=== PATIENT | male | born 1940 | race Caucasian/White ===

== ENCOUNTER 2016-11-13 06:42 | Day surgery (SDC) | payer OTHER ==
--- NOTE | ~2016-11-13 | EGD ---
EGD REPORT [facility] [address] [address] NAME: KARRI MORENO JR : 44 STATUS : REG [facility]#: [id number] AGE: 76 ADM/REG DATE : 11/13/16 MR#: [id number] REPORT SERV DATE: 11/13/16 DICTATED BY: JAYANT GARCIA DATE: 11/13/16 REPORT STATUS : Draft TRANSCRIBED BY: [facility] DATE: 11/13/16 Endoscopy Center Patient Name: Karri Moreno Date of : 1940 Attending MD: JAYANT GARCIA MD Procedure Date No Time: 11/13/2016 Procedure: Colonoscopy Indications: Periumbilical abdominal pain, Rectal bleeding Referring MD: PALOMO HUNTER Medicines: Monitored Anesthesia Care Complications: No immediate complications. Procedure: Pre-Anesthesia Assessment: - ASA Grade Assessment: III - A patient with severe systemic disease. After I obtained informed consent, the scope was passed under direct vision. Throughout the procedure, the patient's blood pressure, pulse, and oxygen saturations were monitored continuously. The CF [id number] was introduced through the anus and advanced to the cecum, identified by appendiceal orifice and ileocecal valve. The colonoscopy was performed with moderate difficulty due to a partially obstructing mass, significant looping and a tortuous colon. Successful completion of the procedure was aided by applying abdominal pressure. The patient tolerated the procedure well. The quality of the bowel preparation was adequate. Findings: Digital rectal exam revealed a firm rectal mass palpated 4 to 5 cm from the anal verge. A few diverticula were found in the sigmoid colon. Hemorrhoids were found during endoscopy and were moderate. A fungating, ulcerated partially obstructing large mass was found in the mid rectum. The mass measured four cm in length. Oozing was present. This was biopsied with a cold forceps for histology. Area was successfully injected with 4 mL Melinda ink for tattooing. Impression: - Rectal mass 4 to 5 cm from the anal verge. - Diverticulosis in the sigmoid colon. - Hemorrhoids. 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 Removal was not done. Biopsied. Injected. Recommendation: - Await pathology results. - Perform a CT scan (computed tomography) of abdomen EGD REPORT [address] [place]. [address] NAME: KARRI MORENO JR : 44 STATUS : REG [facility]#: [id number] AGE: 76 ADM/REG DATE : 11/13/16 MR#: [id number] REPORT SERV DATE: 11/13/16 DICTATED BY: JAYANT GARCIA DATE: 11/13/16 REPORT STATUS : Draft TRANSCRIBED BY: [employer] DATE: 11/13/16 with contrast and pelvis with contrast at the next available appointment. - Check CEA today. - Refer to a surgeon. Procedure Code(s): --- Professional --- 53759, Colonoscopy, flexible, proximal to splenic flexure; with biopsy, single or multiple 72234, Colonoscopy, flexible, proximal to splenic flexure; with directed submucosal injection(s), any substance Diagnosis Code(s): --- Professional --- K62.89, Other specified diseases of anus and rectum K64.9, Unspecified hemorrhoids K57.30, Diverticulosis of large intestine without perforation or abscess without bleeding D49.0, Neoplasm of unspecified behavior of digestive system R10.33, Periumbilical pain K62.5, Hemorrhage of anus and rectum CPT copyright 2013 [employer]. All rights reserved. The codes documented in this report are preliminary and upon counter intelligence review may be revised to meet current compliance requirements. JAYANT GARCIA MD 11/13/2016 9:24 AM This report has been signed electronically. Number of Addenda: 0 Note Initiated On: 11/13/2016 8:44 AM Scope Withdrawal Time 0 hours 10 minutes 25 seconds [address] [place] [address]
--- NOTE | ~2016-11-13 | EGD ---
EGD REPORT [facility] [address] [address] NAME: KARRI MORENO JR : 44 STATUS : REG [facility]#: [id number] AGE: 76 ADM/REG DATE : 11/13/16 MR#: [id number] REPORT SERV DATE: 11/13/16 DICTATED BY: JAYANT GARCIA DATE: 11/13/16 REPORT STATUS : Draft [facility]ANS[facility]IBED [facility]: [facility] DATE: 11/13/16 Endoscopy Center Patient Name: Karri Moreno Date of : 1940 Attending MD: JAYANT GARCIA MD Procedure Date No Time: 11/13/2016 Procedure: Upper GI endoscopy Indications: Heartburn Referring MD: PALOMO HUNTER Medicines: Monitored Anesthesia Care Complications: No immediate complications. Procedure: Pre-Anesthesia Assessment: - ASA Grade Assessment: III - A patient with severe systemic disease. After obtaining informed consent, the endoscope was passed under direct vision. Throughout the procedure, the patient's blood pressure, pulse, and oxygen saturations were monitored continuously. The GIF [id number] was introduced through the mouth, and advanced to the second part of duodenum. The upper GI endoscopy was accomplished without difficulty. The patient tolerated the procedure well. Findings: LA Grade A (one or more mucosal breaks less than 5 mm, not extending between tops of 2 mucosal folds) esophagitis with no bleeding was found in the lower third of the esophagus. Biopsies were taken with a cold forceps for histology. A small hiatus hernia was present. Patchy mildly erythematous mucosa without bleeding was found in the gastric antrum. Biopsies were taken with a cold forceps for histology. The cardia and gastric fundus were normal on retroflexion. Few non-bleeding superficial duodenal ulcers with no stigmata of bleeding were found in the duodenal bulb and in the second part of the duodenum. The largest lesion was 6 mm in largest dimension. Biopsies were taken with a cold forceps for histology. Impression: - LA Grade A esophagitis. Biopsied. - Hiatus hernia. - Erythematous mucosa in the antrum. Biopsied. - Multiple duodenal ulcers with clean base. Biopsied. Recommendation: - Patient has a contact number available for emergencies. The signs and symptoms of potential delayed complications were discussed with the patient. Return to EGD REPORT [address] [address] NAME: KARRI MORENO JR : 44 STATUS : REG [facility] PAT#: [id number] AGE: 76 ADM/REG DATE : 11/13/16 MR#: [id number] REPORT SERV DATE: 11/13/16 DICTATED BY: JAYANT GARCIA DATE: 11/13/16 REPORT STATUS : Draft TRANSCRIBED BY: [employer] DATE: 11/13/16 normal activities tomorrow. Written discharge instructions were provided to the patient. - Regular diet. - Await pathology results. - Follow an antireflux regimen. - Use Prilosec (omeprazole) 40 mg PO daily. Procedure Code(s): --- Professional --- 48817, Esophagogastroduodenoscopy, flexible, transoral; with biopsy, single or multiple Diagnosis Code(s): --- Professional --- K20.9, Esophagitis, unspecified K44.9, Diaphragmatic hernia without obstruction or gangrene K31.9, Disease of stomach and duodenum, unspecified K26.9, Duodenal ulcer, unspecified as acute or chronic, without hemorrhage or perforation R12, Heartburn CPT copyright 2013 [employer]. All rights reserved. The codes documented in this report are preliminary and upon religion department chair review may be revised to meet current compliance requirements. JAYANT GARCIA MD 11/13/2016 9:33 AM This report has been signed electronically. Number of Addenda: 0 Note Initiated On: 11/13/2016 8:55 AM Scope Withdrawal Time 0 hours 0 minutes 0 seconds [address] [id number]
[~2016-11-13 06:42] MED LIST: ALTA2.5 PO; AMITIZA24 PO; ASAB PO; COREG3 PO; COREG6 PO; DORYX100 MG PO; EFFIENT10 PO; FLORINEF0.1 MG PO; LIDOVISCUD OR; LYRICA50 PO; NEUR300 PO; NEUR600 PO; PRILO PO; RESTORIL30 MG PO; SOMATAB PO; ULTRAM50 PO; VOLT75 PO; WELLSR150 PO; ZIAC10 PO; ZOCOR40 PO
[2016-11-13 10:14] LABS: BASOPHILS 0.4 %; BASOPHILS ABSOLUTE 0.03 10/3/uL (0.0-0.16); EOSINOPHILS ABSOLUTE 0.22 10/3/uL (0.0-0.53); HEMOGLOBIN 11.7 g/dL (13.6-17.8); LYMPHOCYTES 13.5 %; MEAN CORPUS HGB CONC 33.4 g/dL (32.0-36.0); MEAN CORPUSCULAR HEMOGLOB 31.1 pg (26.0-34.0); MEAN PLATELET VOLUME 8.5 fL (9.2-13.0); MONOCYTES 9.4 %; NEUTROPHILS 73.7 %; NEUTROPHILS ABSOLUTE 5.47 10/3/uL (2.02-8.40); PLATELET COUNT 335 10/3/uL (150-400); RBC DISTRIBUTION WIDTH 13.3 % (12.0-16.0); RED CELL COUNT 3.76 10/6/uL (4.7-6.1); WHITE BLOOD CELLS 7.4 10/3/uL (4.5-10.5)
[2016-11-13 10:27] LABS: MANUAL DIFF NO %; MEAN CORPUSCULAR VOLUME 93.1 fL (80-100)
[2016-11-13 10:43] LABS: CEA 1.1 NG/ML
== END 2016-11-13 23:59 | disposition home or self-care (01) ==
LOC: DMU 06:42
PROVIDERS: Internal Medicine Gastroenterology
PROC: 0DB38ZX Excision of Lower Esophagus, Via Natural or Artificial Opening Endoscopic, Diagnostic (ICD-10-PCS; 2016-11-13)
PROC: 0DB68ZX Excision of Stomach, Via Natural or Artificial Opening Endoscopic, Diagnostic (ICD-10-PCS; 2016-11-13)
PROC: 0DBP8ZX Excision of Rectum, Via Natural or Artificial Opening Endoscopic, Diagnostic (ICD-10-PCS; principal; 2016-11-13 14:30)
PROC: 3E0H8GC Introduction of Other Therapeutic Substance into Lower GI, Via Natural or Artificial Opening Endoscopic (ICD-10-PCS; 2016-11-13 14:30)
PROC: 0DB98ZX Excision of Duodenum, Via Natural or Artificial Opening Endoscopic, Diagnostic (ICD-10-PCS; 2016-11-13 14:30)
DX: C20 Malignant neoplasm of rectum (principal); K57.30 Diverticulosis of large intestine without perforation or abscess without bleeding; K64.9 Unspecified hemorrhoids; K29.80 Duodenitis without bleeding; K21.0 Gastro-esophageal reflux disease with esophagitis; K44.9 Diaphragmatic hernia without obstruction or gangrene; K31.9 Disease of stomach and duodenum, unspecified; I25.10 Atherosclerotic heart disease of native coronary artery without angina pectoris; G43.909 Migraine, unspecified, not intractable, without status migrainosus; M19.90 Unspecified osteoarthritis, unspecified site; F32.9 Major depressive disorder, single episode, unspecified; Z85.46 Personal history of malignant neoplasm of prostate; Z85.47 Personal history of malignant neoplasm of testis; Z88.0 Allergy status to penicillin; Z79.82 Long term (current) use of aspirin; Z79.52 Long term (current) use of systemic steroids; Z79.899 Other long term (current) drug therapy
CPT/HCPCS: 82378; 82728; 83540; 83550; 85025; 88305; 88313; 88341; 88342